=== PATIENT | female | born 1945 | race Caucasian/White ===

== ENCOUNTER → 2019-11-10 13:30 | Outpatient (REF) | payer MEDICARE, SELFPAY | LOC: ANHLAB 13:30 | PROVIDERS: PCP Emergency Medicine; Visit Provider Nurse Practitioner | DX: C44.722 Squamous cell carcinoma of skin of right lower limb, including hip (principal) | CPT/HCPCS: 88305 ==

== ENCOUNTER 2020-08-20 07:04 | Outpatient (CLI) | payer MEDICARE, SELFPAY ==
[2020-08-20 07:48] LABS: Alanine Aminotransferase 18 U/L (4-35); Albumin Level 3.9 g/dL (3.5-5.1); Alkaline Phosphatase 35 U/L (38-126); Anion Gap 2 mmol/L (8-16); Aspartate Amino Transferase 35 U/L (14-36); Bilirubin,Total 0.2 mg/dL (0.2-1.3); Blood Urea Nitrogen 7 mg/dL (7-17); Calcium 8.7 mg/dL (8.4-10.2); Carbon Dioxide 27 mmol/L (22-30); Chloride 114 mmol/L (98-107); Estimated Glomerular Filt Rate > 60; Glucose 91 mg/dL (65-105); Phosphorus 3.3 mg/dL (2.5-4.5); Potassium 4.2 mmol/L (3.4-5.0); Sodium 143 mmol/L (137-145)
[2020-08-20 07:58] LABS: Parathyroid Intact 141.6 pg/mL (7.5-53.5)
[2020-08-20 09:00] LABS: Vitamin D 25 Hydroxy 91.2 ng/mL
== END 2020-08-20 07:05 | disposition home or self-care (01) ==
PROVIDERS: Visit Provider Internal Medicine Endocrinology, Diabetes & Metabolism
DX: E55.9 Vitamin D deficiency, unspecified (principal); M81.0 Age-related osteoporosis without current pathological fracture
CPT/HCPCS: 36415; 80053; 82306; 83970; 84100

== ENCOUNTER 2020-10-22 12:49 | Outpatient (CLI) | payer MEDICARE, SELFPAY ==
--- NOTE | ~2020-10-22 | DEXA_ITS ---
Bone Density Report Name: Alina Ferro Age: 74 Sex: Female Ethnicity: White Date of : 1945 Indication: postmenopausal osteoporosis; monitoring treatment; height loss; prior fracture; cancer; hysterectomy; Referring Provider: Link, Tena Suggs Study: Bone densitometry was performed. Exam Date: October 22, 2020 Accession number: [id number] Bone Density: Region BMD T-score Z-score Classification AP Spine (L1-L4) 0.799 -2.3 0.1 Osteopenia Femoral Neck (Left) 0.625 -2.0 0.0 Osteopenia Total Hip (Left) 0.692 -2.0 -0.3 Osteopenia Total Hip Bilateral Avg 0.662 -2.3 -0.6 Osteopenia Femoral Neck (Right) 0.591 -2.3 -0.3 Osteopenia Total Hip (Right) 0.631 -2.5 -0.8 Osteoporosis World Health Organization criteria for BMD impression classify patients as: Normal (T-score at or above -1.0), Osteopenia (T-score between -1.0 and -2.5), or Osteoporosis (T-score at or below -2.5). 10-year Fracture Risk: FRAX not reported because: Some T-score for Spine Total or Hip Total or Femoral Neck at or below -2.5 Treated for osteoporosis Previous Exams: Region Exam Age BMD T-score BMD Change BMD Change Date g/cm2 vs Baseline vs Previous AP Spine(L1-L4) 10/22/2020 74 0.799 -2.3 0.098(14.0%)* 0.098(14.0%)* 02/04/2018 72 0.701 -3.1 Total Hip(Left) 10/22/2020 74 0.692 -2.0 0.018(2.7%) 0.018(2.7%) 02/04/2018 72 0.674 -2.2 Total Hip(Right) 10/22/2020 74 0.631 -2.5 0.045(7.6%)* 0.045(7.6%)* 02/04/2018 72 0.587 -2.9 *Denotes significance at 95% confidence level, LSC for AP Spine = 0.022 g/cm2, LSC for Total Hip = 0.027 g/cm2 Clinical Information Provided by Patient: Has had a low trauma fracture Is being treated for osteoporosis Has used the following medications: Fosamax (i.e. alendronate), Vitamin D, Calcium Has the following medical conditions: Cancer, Hysterectomy Patient maximum height was 67 Menopause Age: 51 Drinks caffeinated beverages Onset of menses at age 14 Number of children 1 Impression: The patient has established osteoporosis, based on the Right Total Hip T-score and the existence of a prior fracture. The patient has risk factors, including: previous fracture. No significant bone loss was observed. Discussion: PATIENT UNDER TREATMENT WITH NO SIGNIFICANT BMD LOSS SINCE LAST EXAM. In an untreated patient, BMD typically declines with age. A lack of decline or gain is usually a sign that treatment is efficacious and fracture risk is reduc
== END 2020-10-22 12:50 | disposition home or self-care (01) ==
LOC: ANHIMG 12:52
PROVIDERS: PCP Internal Medicine; Visit Provider Internal Medicine Endocrinology, Diabetes & Metabolism
DX: M81.0 Age-related osteoporosis without current pathological fracture (principal); M85.88 Other specified disorders of bone density and structure, other site; M85.852 Other specified disorders of bone density and structure, left thigh; M85.851 Other specified disorders of bone density and structure, right thigh
CPT/HCPCS: 77080

== ENCOUNTER 2021-04-25 15:52 | Emergency (ER) | payer MEDICARE, SELFPAY ==
[2021-04-25 15:54] VITALS: BP 126/63; PULSE 67; RESP 17; TEMP 36.2; O2SAT 97
[2021-04-25 16:34] LABS: Add Urine Microscopic? YES; Appearance Urine Cloudy (Clear); Bacteria Urine Trace /hpf; Bilirubin Urine Negative (Negative); Blood Urine Negative (Negative); Color Urine Yellow (Yellow); Glucose Urine UA Negative (Negative); Ketones Urine Negative (Negative); Leukocyte Esterase Ur 2+ LEU/UL (Negative); Nitrate Urine Negative (Negative); Protein Urine Negative (Negative); Squamous Epithelial Cell Urine Many /hpf (Few); Urobilinogen Urine Negative mg/dL (<2.0)
[2021-04-25 16:37] LABS: Specific Grav Ur 1.003 (1.001-1.035)
--- NOTE | 2021-04-25 16:44 | ED.GENADULT ---
HPI - General Adult General Chief complaint: Urogenital-Female Stated complaint: dysuria and urgency Time Seen by Provider: 04/25/21 16:12 History of Present Illness HPI narrative: Patient is a 75-year-old female who presents to the ER with dysuria. Ongoing for 3 days. Associate with some bloating and pressure in her lower abdomen. No vaginal discharge. No fevers or chills or sweats. No flank pain. No alleviating factors. Related Data Home Medications Medication Instructions Recorded Confirmed acetaminophen [Tylenol] PO 11/10/19 alprazolam [Xanax] PO 11/10/19 aspirin 81 mg tablet,delayed 81 mg PO DAILY 11/10/19 release calcium-multivitamin w-iron PO 11/10/19 denosumab 60 mg/mL subcutaneous 60 mg SUB-Q [id number] 11/10/19 syringe estradiol 0.5 mg tablet 0.5 mg PO DAILY 11/10/19 mecobalamin (vitamin B12) 5,000 mcg PO 11/10/19 mcg disintegrating tablet Allergies Allergy/AdvReac Type Severity Reaction Status Date / Time codeine Allergy Unknown VOMITING Verified 04/25/21 16:13 Penicillins Allergy Unknown Unknown Verified 04/25/21 16:13 Review of Systems Constitutional: Constitutional: Denies chills and Denies fever(s) Gastrointestinal: Gastrointestinal: Denies abdominal pain, Reports bloating, Reports constipation (Has been on oxycodone for dental work.), Denies nausea and Denies vomiting Genitourinary: Genitourinary: Denies hematuria, Reports nocturia, Reports dysuria and Denies flank pain PMFSH Past Medical History Medical History (Updated 04/25/21 @ 16:46 by Nimesh Abad MD) Osteoporosis Surgical History Surgical History (Updated 11/10/19 @ 13:19 by Leslie Antony CMA) History of oral surgery History of submandibular gland removal History of surgical removal of ganglion cyst Family History Family History (Updated 11/10/19 @ 13:19 by Leslie Antony CMA) Mother Family history of osteoporosis Family history of Alzheimer's disease Father Heart disease Grandparent Heart disease Social History Social History Smoking status: Never smoker Alcohol intake: never Exam Narrative: GENERAL: Well-appearing, well-nourished, and in no acute distress. HEAD: Normocephalic, atraumatic. CHEST: Clear to auscultation. No respiratory distress. HEART: Regular rate and rhythm. Normal peripheral pulses. ABDOMEN: Soft, nontender, nondistended, no CVA tenderness. EXTREMITIES: Normal range of motion. No edema. NEURO: Alert and oriented x3. PSYCH: Normal mood and affect. Course Course Emergency Course: Informed results. Discharge home. Vital Signs Vital signs: Vital Signs Temperature 97.2 F L 04/25/21 15:54 Pulse Rate 67 04/25/21 15:54 Respiratory Rate 17 04/25/21 15:54 Blood Pressure 126/63 04/25/21 15:54 Pulse Oximetry 97 04/25/21 15:54 Temperature 97.2 F L 04/25/21 15:54 Pulse Rate 67 04/25/21 15:54 Respiratory Rate 17 04/25/21 15:54 Blood Pressure 126/63 04/25/21 15:54 Pulse Oximetry 97 04/25/21 15:54 Medical Decision Making Vital Signs Vital Signs: Vital Signs Temperature 97.2 F L 04/25/21 15:54 Pulse Rate 67 04/25/21 15:54 Respiratory Rate 17 04/25/21 15:54 Blood Pressure 126/63 04/25/21 15:54 Pulse Oximetry 97 04/25/21 15:54 Temperature 97.2 F L 04/25/21 15:54 Pulse Rate 67 04/25/21 15:54 Respiratory Rate 17 04/25/21 15:54 Blood Pressure 126/63 04/25/21 15:54 Pulse Oximetry 97 04/25/21 15:54 Lab Data Labs: Lab Results 04/25/21 Range/Units 16:08 Urine Color Yellow (Yellow) Urine Appearance Cloudy H (Clear) Urine pH 7.0 (5.0-9.0) Ur Specific [place] 1.003 (1.001-1.035) Urine Protein Negative (Negative) mg/dL Urine Glucose (UA) Negative (Negative) mg/dL Urine Ketones Negative (Negative) mg/dL Ur Blood (Man) Negative (Negative) Urine Nitrate Negative (Negative) Urine Bilirubin Negative (Negative) Urine Urobilinogen Negative
[2021-04-25 17:07] VITALS: PULSE 60; RESP 18; O2SAT 99
== END 2021-04-25 17:10 | disposition home or self-care (01) ==
LOC: ANHED 17:01
PROVIDERS: Emergency Medicine; Emergency Provider Emergency Medicine; PCP Internal Medicine
DX: N39.0 Urinary tract infection, site not specified (principal); M81.0 Age-related osteoporosis without current pathological fracture; Z79.82 Long term (current) use of aspirin
CPT/HCPCS: 81001; 87086; 87147; 87181; 87186; 99283

== ENCOUNTER 2021-12-02 10:19 | Outpatient (CLI) | payer MEDICARE, SELFPAY ==
[2021-12-02 13:14] LABS: Cortisol Random 8.35 ug/dL
[2021-12-06 22:11] LABS: Adrenocorticotropic Hormone 16 pg/mL (6-50)
[2021-12-09 14:41] LABS: PRA 3.66 ng/mL/h (0.25-5.82)
== END 2021-12-02 10:20 | disposition home or self-care (01) ==
PROVIDERS: PCP Internal Medicine; Visit Provider Internal Medicine Endocrinology, Diabetes & Metabolism
DX: I95.9 Hypotension, unspecified (principal)
CPT/HCPCS: 36415; 82024; 82088; 82533; 84244

== ENCOUNTER 2021-12-27 09:33 | Outpatient (CLI) | payer MEDICARE, SELFPAY ==
[2021-12-27 10:08] LABS: Alanine Aminotransferase 19 U/L (6-35); Albumin Level 4.2 g/dL (3.5-5.1); Alkaline Phosphatase 42 U/L (38-126); Anion Gap 8 mmol/L (8-16); Aspartate Amino Transferase 31 U/L (14-36); Bilirubin,Total 0.3 mg/dL (0.2-1.3); Blood Urea Nitrogen 11 mg/dL (7-17); Calcium 8.5 mg/dL (8.4-10.2); Carbon Dioxide 25 mmol/L (22-30); Chloride 104 mmol/L (98-107); Estimated Glomerular Filt Rate > 60; Glucose 107 mg/dL (65-110); Phosphorus 3.9 mg/dL (2.5-4.5); Potassium 3.6 mmol/L (3.4-5.0); Sodium 137 mmol/L (137-145)
[2021-12-27 10:19] LABS: Parathyroid Intact 138.3 pg/mL (7.5-53.5)
[2021-12-27 10:33] LABS: Vitamin D 25 Hydroxy 49.6 ng/mL
[2021-12-27 10:38] LABS: Thyroid Stimulating Hormone 0.635 uIU/mL (0.465-4.680)
[2021-12-30 20:26] LABS: Triiodothyronine T3 Free 2.5 pg/mL (2.3-4.2)
== END 2021-12-27 09:34 | disposition home or self-care (01) ==
PROVIDERS: PCP Internal Medicine; Visit Provider Internal Medicine Endocrinology, Diabetes & Metabolism
DX: E06.3 Autoimmune thyroiditis (principal); M81.0 Age-related osteoporosis without current pathological fracture
CPT/HCPCS: 36415; 80053; 82306; 83970; 84100; 84439; 84443; 84481

== ENCOUNTER 2022-04-03 18:45 | Emergency (ER) | payer MEDICARE, SELFPAY ==
--- NOTE | 2022-04-03 19:39 | PC.NURSE ---
ALEJANDRO Kuo called x2 for triage and no answer from lobby at this time.
== END 2022-04-03 19:39 | disposition left against medical advice (07) ==
LOC: ANHED 20:20
PROVIDERS: PCP Internal Medicine
DX: Z53.21 Procedure and treatment not carried out due to patient leaving prior to being seen by health care provider (principal)
CPT/HCPCS: 99199

== ENCOUNTER 2022-04-04 08:55 | Emergency (ER) | payer MEDICARE, SELFPAY ==
--- NOTE | ~2022-04-04 | XR_ITS ---
EXAMINATION: XR chest 2V DATE: 04/04/2022 09:53 INDICATION: Cough. Weakness. TECHNIQUE: Frontal and lateral views of the chest were obtained. COMPARISON: Chest 2 views 02/17/2018 FINDINGS: There are airspace opacities at left lung base. No pleural effusion or pneumothorax. The he art size is normal. There is a chronic compression fracture of T12. IMPRESSION: 1. Airspace opacities at left lung base, consistent with atelectasis versus pneumonia. Reviewed, dictated and finalized at location A. [facility] IMPRESSION: 1. Airspace opacities at left lung base, consistent with atelectasis versus pne umonia.
[2022-04-04 09:04] VITALS: BP 94/65; PULSE 90; RESP 18; TEMP 36.7; O2SAT 100
[2022-04-04 09:07] VITALS: PULSE 98; RESP 16; TEMP 36.6; O2SAT 97
--- NOTE | 2022-04-04 09:13 | ED.GENADULT ---
HPI - General Adult General Chief complaint: Unspecified Stated complaint: weak, cold, nausea, Time Seen by Provider: 04/04/22 09:00 History of Present Illness HPI narrative: 76-year-old female here for evaluation of generalized weakness, chills, cough, congestion and sore throat over the past 3 days. Patient states that she actually feels better today but decided to come in because she finally gained the strength to leave the house. Reports positive sick contacts, patient's is sick with similar symptoms. Denies chest pain but states that the cough is making her feel short of breath. No leg swelling, vomiting, diarrhea, abdominal pain or fevers. No history of lung disease. Related Data Home Medications Medication Instructions Recorded Confirmed acetaminophen [Tylenol] PO 11/10/19 alprazolam [Xanax] PO 11/10/19 aspirin 81 mg tablet,delayed 81 mg PO DAILY 11/10/19 release (Adult Aspirin Regimen) calcium-multivitamin w-iron PO 11/10/19 denosumab 60 mg/mL subcutaneous 60 mg subcut [id number] 11/10/19 syringe (Prolia) estradiol 0.5 mg tablet 0.5 mg PO DAILY 11/10/19 mecobalamin (vitamin B12) 5,000 mcg PO 11/10/19 mcg disintegrating tablet Allergies Allergy/AdvReac Type Severity Reaction Status Date / Time codeine Allergy Unknown VOMITING Verified 04/04/22 08:56 Penicillins Allergy Unknown Unknown Verified 04/04/22 08:56 Review of Systems Review of Systems: Gen.: Denies fevers or chills Eyes: Denies eye pain or visual change ENT: Reports congestion and sore throat Respiratory: Reports cough CV: Denies chest pain or palpitations GI: Denies abdominal pain nausea, emesis or diarrhea denies burning, urgency, frequency or hematuria Musculoskeletal: Denies back pain or muscle pain Neuro: Denies numbness, tingling, weakness or focal weakness Skin: Denies rash Except as documented, all other systems reviewed and negative [facility] Past Medical History Medical History (Updated 04/04/22 @ 10:22 by Piedad Atkinson PA-C) Osteoporosis Surgical History Surgical History (Updated 11/10/19 @ 13:19 by Leslie Antony CMA) History of oral surgery History of submandibular gland removal History of surgical removal of ganglion cyst Family History Family History (Updated 11/10/19 @ 13:19 by Leslie Antony [facility]) Mother Family history of osteoporosis Family history of Alzheimer's disease Father Heart disease Grandparent Heart disease Social History Social History Smoking status: Never smoker Alcohol intake: never Exam Narrative: APPEARANCE: Appears younger than stated age. Well appearing, no pain in distress, well-nourished. Head: Normocephalic and atraumatic. EYES: PERRLA/EOMI, conjunctivae clear NOSE: No nasal drainage EARS: External ear normal in appearance THROAT: Oropharynx is clear. Mucous membranes are moist. NECK: Supple. No adenopathy, no masses. RESPIRATORY: Airway patent, respirations nonlabored. Clear to auscultation bilaterally, no rales, rhonchi, wheezing. CARDIOVASCULAR: Regular rate and rhythm without murmurs, rubs, or gallops. ABDOMINAL: Normoactive bowel sounds. Soft, nontender, nondistended. No rebound tenderness or guarding. MUSCULOSKELETAL: Extremities are warm and well-perfused. Moves all extremities well. No edema. NEURO: Normal speech. No focal neurologic deficits. SKIN: Skin is warm and dry. No rashes. PSYCHIATRIC: Normal affect/mood. Course Vital Signs Vital signs: Vital Signs Temperature 98.0 F 04/04/22 09:04 Pulse Rate 90 04/04/22 09:04 Respiratory Rate 18 04/04/22 09:04 Blood Pressure 94/65 L 04/04/22 09:04 Pulse Oximetry 100 04/04/22 09:04 Oxygen Delivery Room Air 04/04/22 09:04 Temperature 97.8 F 04/04/22 09:07 Pulse Rate 72 04/04/22 11:37 Respiratory Rate 18 04/04/22 11:37 Blood Pressure 95/48 L 04/04/22 11:37 Pulse Oximetry 100 04/04/22 11:37 Oxygen Delivery Room Air 04/04/22 10:38
[2022-04-04 09:45] LABS: Basophils Percent Auto 0.2 % (0.2-1.2); Hematocrit 39.8 % (37.0-47.0); Hemoglobin 13.3 g/dL (12.0-15.0); Immature Granulocyte Absolute 0.05 K/mm3 (0.00-0.031); Immature Granulocyte Percent A 0.4 % (0-0.5); Lymphocytes Absolute Auto 1.18 K/mm3 (0.9-3.2); Lymphocytes Percent Auto 9.2 % (18.3-44.2); Mean Corpuscular HGB Conc 33.4 g/dl (32-36); Mean Corpuscular Hemoglobin 32.3 pg (26-34); Mean Corpuscular Volume 96.6 fl (80-100); Mean Platelet Volume 10.2 fl (7.4-10.4); Monocytes Absolute Auto 1.1 K/mm3 (0.1-0.6); Monocytes Percent Auto 8.5 % (2.6-8.5); Neutrophils Absolute Auto 10.5 K/mm3 (1.3-6.7); Neutrophils Percent Auto 81.7 % (45.5-73.1); Platelet Count Result 191 k/mm3 (150-375); Red Blood Count 4.12 M/mm3 (4.2-5.4); Red Cell Distribution Width 13.2 % (11.5-14.5); White Blood Count 12.9 K/mm3 (4.5-10.0)
[2022-04-04 09:57] LABS: Alanine Aminotransferase 20 U/L (6-35); Alkaline Phosphatase 45 U/L (38-126); Anion Gap 7 mmol/L (8-16); Aspartate Amino Transferase 36 U/L (14-36); Bilirubin,Total 0.5 mg/dL (0.2-1.3); Blood Urea Nitrogen 7 mg/dL (7-17); Calcium 8.3 mg/dL (8.4-10.2); Carbon Dioxide 24 mmol/L (22-30); Chloride 102 mmol/L (98-107); Estimated CRCL calculation 42 ml/min; Estimated Glomerular Filt Rate > 60; Glucose 108 mg/dL (65-110); Potassium 3.3 mmol/L (3.4-5.0); Sodium 133 mmol/L (137-145)
[2022-04-04 10:09] LABS: Influenza A QL RT-PCR Positive (Negative); Influenza B QL RT-PCR Negative (Negative); SARS-CoV-2 RNA PCR Negative
[2022-04-04] MEDS: SODIUM CHLORIDE 0.9% IV 1,000 ML 999 ML IV CONT (10:36)
[2022-04-04 11:37] VITALS: BP 95/48; PULSE 72; RESP 18; O2SAT 100
== END 2022-04-04 11:43 | disposition home or self-care (01) ==
PROVIDERS: Emergency Provider Physician Assistant; PCP Internal Medicine
DX: J10.1 Influenza due to other identified influenza virus with other respiratory manifestations (principal); Z20.822 Contact with and (suspected) exposure to COVID-19; M81.0 Age-related osteoporosis without current pathological fracture; Z79.82 Long term (current) use of aspirin
CPT/HCPCS: 36415; 71046; 80053; 85025; 87636; 96360; 99283; J7030

== ENCOUNTER 2022-05-27 11:40 | Outpatient (CLI) | payer MEDICARE, SELFPAY ==
[2022-05-27 12:43] LABS: Alanine Aminotransferase 21 U/L (6-35); Albumin Level 3.9 g/dL (3.5-5.1); Alkaline Phosphatase 44 U/L (38-126); Anion Gap 4 mmol/L (8-16); Aspartate Amino Transferase 35 U/L (14-36); Bilirubin,Total 0.4 mg/dL (0.2-1.3); Blood Urea Nitrogen 9 mg/dL (7-17); Calcium 8.7 mg/dL (8.4-10.2); Carbon Dioxide 25 mmol/L (22-30); Chloride 108 mmol/L (98-107); Estimated Glomerular Filt Rate > 60; Glucose 97 mg/dL (65-110); Phosphorus 3.6 mg/dL (2.5-4.5); Potassium 3.6 mmol/L (3.4-5.0); Sodium 137 mmol/L (137-145)
[2022-05-27 13:13] LABS: Thyroid Stimulating Hormone 0.441 uIU/mL (0.465-4.680)
[2022-05-27 14:19] LABS: Free T4 Free Thyroxine 0.73 ng/mL (0.78-2.19); Vitamin D 25 Hydroxy 49.7 ng/mL
[2022-06-01 06:16] LABS: Triiodothyronine T3 Free 2.3 pg/mL (2.3-4.2)
== END 2022-05-27 11:41 | disposition home or self-care (01) ==
PROVIDERS: PCP Internal Medicine; Visit Provider Internal Medicine Endocrinology, Diabetes & Metabolism
DX: M81.0 Age-related osteoporosis without current pathological fracture (principal); E06.3 Autoimmune thyroiditis
CPT/HCPCS: 36415; 80053; 82306; 83970; 84100; 84439; 84443; 84481

== ENCOUNTER 2022-06-10 10:57 | Emergency (ER) | payer MEDICARE, SELFPAY ==
[2022-06-10 11:03] VITALS: BP 117/45; PULSE 71; RESP 16; O2SAT 99
--- NOTE | 2022-06-10 11:56 | ED.SKABFB ---
HPI - Skin/Abscess/Foreign Bdy General Chief complaint: Skin/Abscess/Foreign Body Stated complaint: piece of hearing aid caught in ear Time Seen by Provider: 06/10/22 11:07 Source: patient Mode of arrival: ambulatory Limitations: no limitations History of Present Illness HPI narrative: This is a 76-year-old female that presents to the emergency department for a foreign body in her right ear. Reports part of her hearing aid is stuck in her ear. She was unable to remove this herself which prompted her to be seen. Denies fevers or otalgia. Related Data Home Medications Medication Instructions Recorded Confirmed acetaminophen [Tylenol] PO 11/10/19 alprazolam [Xanax] PO 11/10/19 aspirin 81 mg tablet,delayed 81 mg PO DAILY 11/10/19 release (Adult Aspirin Regimen) calcium-multivitamin w-iron PO 11/10/19 denosumab 60 mg/mL subcutaneous 60 mg subcut [id number] 11/10/19 syringe (Prolia) estradiol 0.5 mg tablet 0.5 mg PO DAILY 11/10/19 mecobalamin (vitamin B12) 5,000 mcg PO 11/10/19 mcg disintegrating tablet Allergies Allergy/AdvReac Type Severity Reaction Status Date / Time codeine Allergy Unknown VOMITING Verified 04/04/22 08:56 Penicillins Allergy Unknown Unknown Verified 04/04/22 08:56 Review of Systems Review of Systems: CONSTITUTIONAL: Denies fever ENT: Denies otalgia. All systems reviewed & are unremarkable except as noted in HPI and below PMFSH Past Medical History Medical History (Updated 06/10/22 @ 11:57 by Piedad Reynaga PA-C) Osteoporosis Surgical History Surgical History (Updated 11/10/19 @ 13:19 by Leslie Antony CMA) History of oral surgery History of submandibular gland removal History of surgical removal of ganglion cyst Family History Family History (Updated 11/10/19 @ 13:19 by Leslie Antony CMA) Mother Family history of osteoporosis Family history of Alzheimer's disease Father Heart disease Grandparent Heart disease Social History Social History Smoking status: Never smoker Alcohol intake: never Exam Narrative: GENERAL: Well-appearing, well-nourished, and in no acute distress. HEAD: Normocephalic, atraumatic. EYES: EOMI. ENT: Right external auditory canal with part of hearing aid visualized EXTREMITIES: Normal range of motion. No edema. SKIN: Warm, dry, no rash. NEURO: No focal deficits. Alert and oriented x3. PSYCH: Normal mood and affect Course Vital Signs Vital signs: Vital Signs Pulse Rate 71 06/10/22 11:03 Respiratory Rate 16 06/10/22 11:03 Blood Pressure 117/45 L 06/10/22 11:03 Pulse Oximetry 99 06/10/22 11:03 Oxygen Delivery Room Air 06/10/22 11:03 Pulse Rate 71 06/10/22 11:03 Respiratory Rate 16 06/10/22 11:03 Blood Pressure 117/45 L 06/10/22 11:03 Pulse Oximetry 99 06/10/22 11:03 Oxygen Delivery Room Air 06/10/22 11:03 Procedures FB Removal Ear Foreign Body #1: Foreign Body Removal Date: 06/10/22 Foreign Body Removal Time: 12:01 Location: ear canal (R) Foreign Body Suspected: other (Hearing aids) TM intact pre-procedure: unable to visualize Foreign Body Removed: yes Foreign Body Removal Technique: forceps Tympanic Membrane Intact Post Procedure: Yes Patient Tolerated Procedure: well and no complications Complications: none MDM - Skin/Abscess/Foreign Bdy MDM Narrative Medical decision making narrative: Patient presents to the emergency department for part of her hearing aid being stuck in her right external auditory canal. This was easily removed. TM and external auditory canal are normal post removal. Was instructed to follow-up with her primary provider as needed Differential Diagnosis Differential diagnosis: Likely other (ear foreign body, otitis externa) Critical Care Time Critical Care Time Critical Care Time: No Discharge Plan Discharge Clinical Impression: Foreign body in right ear Qualifiers:
[2022-06-10 12:06] VITALS: TEMP 36.6
== END 2022-06-10 12:06 | disposition home or self-care (01) ==
PROVIDERS: Emergency Provider Physician Assistant; PCP Internal Medicine
DX: T16.1XXA Foreign body in right ear, initial encounter (principal); M81.0 Age-related osteoporosis without current pathological fracture; Z79.82 Long term (current) use of aspirin
CPT/HCPCS: 69200; 99282

== ENCOUNTER 2022-07-07 10:34 | Emergency (ER) | payer MEDICARE, SELFPAY ==
--- NOTE | 2022-07-07 11:02 | PC.NURSE ---
Patient informed this RN that she was able to get into her PCP office this afternoon to have piece of hearing aid removed, so she is leaving the emergency department and going home.
--- NOTE | 2022-07-07 11:50 | PC.NURSE ---
Patient did not answer when called for triage a second time at 1150
--- NOTE | 2022-07-07 12:15 | PC.NURSE ---
Patient did not answer for triage a third time
== END 2022-07-07 14:57 | disposition left against medical advice (07) ==
PROVIDERS: PCP Internal Medicine
DX: Z53.21 Procedure and treatment not carried out due to patient leaving prior to being seen by health care provider (principal)
CPT/HCPCS: 99199

== ENCOUNTER 2022-07-21 11:22 | Outpatient (CLI) | payer MEDICARE, SELFPAY ==
[2022-07-21 12:47] LABS: Alanine Aminotransferase 18 U/L (6-35); Albumin Level 4.3 g/dL (3.5-5.1); Alkaline Phosphatase 45 U/L (38-126); Anion Gap 4 mmol/L (8-16); Aspartate Amino Transferase 26 U/L (14-36); Bilirubin,Total 0.5 mg/dL (0.2-1.3); Blood Urea Nitrogen 12 mg/dL (7-17); Calcium 9.2 mg/dL (8.4-10.2); Carbon Dioxide 26 mmol/L (22-30); Chloride 110 mmol/L (98-107); Estimated Glomerular Filt Rate > 60; Glucose 97 mg/dL (65-110); Phosphorus 3.7 mg/dL (2.5-4.5); Potassium 3.8 mmol/L (3.4-5.0); Sodium 140 mmol/L (137-145)
[2022-07-21 13:03] LABS: Free T4 Free Thyroxine 0.83 ng/mL (0.78-2.19)
[2022-07-21 13:15] LABS: Thyroid Stimulating Hormone 0.191 uIU/mL (0.465-4.680)
[2022-07-21 13:51] LABS: Folic Acid 15.3 ng/mL (2.76->20)
[2022-07-24 05:25] LABS: Triiodothyronine T3 Free 1.9 pg/mL (2.3-4.2)
== END 2022-07-21 11:23 | disposition home or self-care (01) ==
PROVIDERS: PCP Internal Medicine; Visit Provider Internal Medicine Endocrinology, Diabetes & Metabolism
DX: E06.3 Autoimmune thyroiditis (principal); M81.0 Age-related osteoporosis without current pathological fracture
CPT/HCPCS: 36415; 80053; 82306; 82607; 82746; 83970; 84100; 84439; 84443; 84481

== ENCOUNTER 2022-09-08 09:00 | Outpatient (NON) | payer MEDICARE, SELFPAY | END 2022-09-08 09:01 | disposition home or self-care (01) | LOC: ANHLAB 09-09 12:54 | PROVIDERS: PCP Internal Medicine; Visit Provider Internal Medicine Gastroenterology | DX: D12.6 Benign neoplasm of colon, unspecified (principal) | CPT/HCPCS: 88305 ==

== ENCOUNTER 2022-09-08 10:05 | Day surgery (SDC) | payer MEDICARE, SELFPAY ==
[2022-08-18 11:46] VITALS: BMI 17.8
[2022-08-21 11:54] VITALS: BMI 18.1
--- NOTE | 2022-09-05 15:28 | P.PNAN_ITS ---
Anes - Initial Pre Proc Eval Procedure: Operation Date: 09/08/22 12:30 Proposed Procedures p Screening Colonoscopy - Raúl Yepez MD Date/Time: 09/05/22 15:28 Surgeon: Raúl Yepez MD Pre Op Diagnosis: Noeplasm Screening Patient Data Age: 76 Gender: F Height: 1.68 m Weight: 50.8 kg Allergies Allergy/AdvReac Type Severity Reaction Status Date / Time codeine Allergy Unknown VOMITING Verified 04/04/22 08:56 Penicillins Allergy Unknown Rash Verified 08/21/22 11:53 Home Medications Medication Instructions Recorded Confirmed Type aspirin 81 mg tablet,delayed 81 mg PO DAILY 11/10/19 08/21/22 History release (Adult Aspirin Regimen) calcium-multivitamin w-iron 1,200 mg PO DAILY 11/10/19 08/21/22 History estradiol 0.5 mg tablet 0.5 mg PO DAILY 11/10/19 08/21/22 History mecobalamin (vitamin B12) 5,000 5,000 mcg PO DAILY 11/10/19 08/21/22 History mcg disintegrating tablet albuterol sulfate 90 mcg/actuation 08/21/22 08/21/22 History aerosol inhaler alendronate 70 mg tablet 70 mg PO WEEKLY 08/21/22 08/21/22 History levothyroxine 75 mcg tablet 75 mcg PO DAILY 08/21/22 08/21/22 History (Unithroid) liothyronine 5 mcg tablet 5 mcg PO DAILY 08/21/22 08/21/22 History rosuvastatin 10 mg tablet 10 mg PO DAILY 08/21/22 08/21/22 History Patient hx anesthesia problems: none Family hx anesthesia problems: none Results Review: All pre-operative results and documents have been reviewed as part of the pre- operative evaluation. FORMERLY [facility], [facility] Past Medical History Medical History (Updated 09/05/22 @ 15:29 by Gilmer Chavez MD) Hyperlipidemia Hypothyroidism Osteoporosis Surgical History Surgical History (Updated 11/10/19 @ 13:19 by Leslie Antony CMA) History of oral surgery History of submandibular gland removal History of surgical removal of ganglion cyst Family History Family History (Updated 11/10/19 @ 13:19 by Leslie Antony CMA) Mother Family history of osteoporosis Family history of Alzheimer's disease Father Heart disease Grandparent Heart disease Social History Social History Smoking status: Never smoker Alcohol intake: current Substance use: never Substance use type: does not use Living arrangements: with family Spiritual care concerns: No Anes - Eval Final PreProcedure Day of Procedure 09/05/22 15:28 Patient weight: normal Heart: regular rate and rhythm Lungs: clear to auscultation and normal air movement Airway: Mallampati scale class II Neurological: alert and oriented Last oral intake: >/= 8 hours ASA classification: II Emergent: no Anesthetic plan: proceed Anesthesia type and monitoring: general GIVS Results Review: All pre-operative results and documents have been reviewed as part of the pre- operative evaluation. Informed Consent: The patient's anesthetic plan and its attendant risks and benefits were discussed with the patient/family/POA. Questions were solicited and answers provided to the satisfaction of the patient/family/POA.
[2022-09-08 11:15] VITALS: BP 101/53; PULSE 79; RESP 20; TEMP 36.7; O2SAT 99
[2022-09-08] MEDS: LACTATED RINGERS 1,000 ML 150 ML IV CONT (11:55)
--- NOTE | 2022-09-08 12:02 | PM.HPGS ---
History of Present Illness History of Present Illness Consent: Risks, benefits, and alternatives have been discussed and questions answered. Patient agrees to proceed with procedure. Chief complaint: Noeplasm Screening Narrative: Alina Ferro is a 76 year old female with last colonoscopy 4 years ago with polyp Review of Systems Constitutional: Constitutional: Denies headache(s) and Denies weakness Eyes: Eyes: Denies blurry vision ENT: Reports Normal hearing present, Denies headache(s) and Denies neck pain Cardiovascular: Cardiovascular: Denies chest pain and Denies dyspnea Respiratory: Respiratory: Denies dyspnea Gastrointestinal: Gastrointestinal: Reports no additional gastrointestinal complaints Genitourinary: Genitourinary: Denies dysuria Musculoskeletal: Musculoskeletal: Denies neck pain Integumentary/Breasts: Skin/Breast: Denies dry skin Neurologic: Reports Normal hearing present, Denies headache(s) and Denies weakness Psychiatric: Psychiatric: Denies anxiety Endocrine: Endocrine: Denies change in body appearance Hematologic/Lymphatic: Hematologic/Lymphatic: Denies easy bleeding Allergic/Immunologic: Allergic/Immunologic: Denies urticaria PMFSH Past Medical History Medical History (Updated 09/08/22 @ 12:32 by Raúl Yepez MD) Adenomatous colon polyp Hyperlipidemia Hypothyroidism Osteoporosis Surgical History Surgical History (Updated 11/10/19 @ 13:19 by Leslie Antony CMA) History of oral surgery History of submandibular gland removal History of surgical removal of ganglion cyst Family History Family History (Updated 11/10/19 @ 13:19 by Leslie Antony CMA) Mother Family history of osteoporosis Family history of Alzheimer's disease Father Heart disease Grandparent Heart disease Social History Social History Smoking status: Never smoker Alcohol intake: current Substance use: never Substance use type: does not use Living arrangements: with family Spiritual care concerns: No Meds Home Medications and Allergies Home Medications Medication Instructions Recorded Confirmed Type aspirin 81 mg tablet,delayed 81 mg PO DAILY 11/10/19 09/08/22 History release (Adult Aspirin Regimen) calcium-multivitamin w-iron 1,200 mg PO DAILY 11/10/19 09/08/22 History estradiol 0.5 mg tablet 0.5 mg PO DAILY 11/10/19 09/08/22 History mecobalamin (vitamin B12) 5,000 5,000 mcg PO DAILY 11/10/19 09/08/22 History mcg disintegrating tablet albuterol sulfate 90 mcg/actuation 08/21/22 09/08/22 History aerosol inhaler alendronate 70 mg tablet 70 mg PO WEEKLY 08/21/22 09/08/22 History levothyroxine 75 mcg tablet 75 mcg PO DAILY 08/21/22 09/08/22 History (Unithroid) liothyronine 5 mcg tablet 5 mcg PO DAILY 08/21/22 09/08/22 History rosuvastatin 10 mg tablet 10 mg PO DAILY 08/21/22 09/08/22 History Allergies Allergy/AdvReac Type Severity Reaction Status Date / Time codeine Allergy Unknown VOMITING Verified 09/08/22 11:50 Penicillins Allergy Unknown Rash Verified 09/08/22 11:50 Vital Signs Vital Signs - 24 hr 09/08/22 11:15 Temperature 98.1 F Pulse Rate 79 Respiratory Rate 20 Blood Pressure 101/53 L Pulse Oximetry 99 Oxygen Delivery Room Air Exam Const: General: comfortable and no acute distress HENMT: Face/Nose/Sinus: Normal nares present Eyes: General: appearance normal, both eyes and all related structures Neck: Neck: no JVD Resp: Auscultation: clear to auscultation bilaterally Cardio: Rate: regular rate Rhythm: regular rhythm GI: Inspection: non-distended GI Palp: Yes Soft to palpation Skin: General skin exam: normal color Neuro: General: gait normal Speech: normal speech Extrem: General: normal to inspection Psych: Mental Status: mental status grossly normal Assessment and Plan Assessment and plan (1) Adenomatous colon polyp: Code(s): D12.6 - Benign neoplasm of colon, unspecified
[2022-09-08 12:35] VITALS: BP 86/50; PULSE 77; RESP 16; O2SAT 100
[2022-09-08 12:45] VITALS: BP 92/59; PULSE 68; RESP 18; O2SAT 99
[2022-09-08 12:55] VITALS: BP 99/63; PULSE 62; RESP 18; O2SAT 98
--- NOTE | 2022-09-16 08:39 | WPDANESPN ---
Anes - Prog Note Post-Op Date/Time: 09/16/22 08:39 Cardiovascular status: normal Respiratory status: normal Airway patency: baseline Mental status: baseline Post-Op hydration status: normal Vital Signs: Last Vital Signs Temp 36.7 C 09/08/22 11:15 Pulse 62 09/08/22 12:55 Resp 18 09/08/22 12:55 BP 99/63 L 09/08/22 12:55 Pulse Ox 98 09/08/22 12:55 O2 Del Method Room Air 09/08/22 12:55 Pain Score (VAS): 0 Post-procedural complaints: none Patient Feedback: Patient satisfied with anesthetic care.
== END 2022-09-08 13:20 | disposition home or self-care (01) ==
PROVIDERS: PCP Internal Medicine; Visit Provider Internal Medicine Gastroenterology
PROC: 0DJD8ZZ Inspection of Lower Intestinal Tract, Via Natural or Artificial Opening Endoscopic (ICD-10-PCS; CPT 45378; principal; 2022-09-08 12:30)
DX: Z86.010 Personal history of colon polyps (principal)
CPT/HCPCS: 45380

== ENCOUNTER → 2022-09-23 15:01 | Outpatient (CLI) | payer MEDICARE, SELFPAY ==
--- NOTE | ~2022-09-23 | MR_ITS ---
EXAMINATION: MR ankle LT wo con DATE: 09/23/2022 15:59 INDICATION: Left ankle pain. TECHNIQUE: Magnetic resonance imaging (MRI) of the left ankle was performed without intravenous contr ast. Sequences included sagittal PD-weighted FS FSE, sagittal PD-weighted FSE, coronal PD-weighted FS FSE, coronal PD-weighted FSE, axial PD-weighted FS FSE, and axial PD-weighted FSE. COMPARISON: None. FINDINGS: Medial ankle ligaments: The deep and superficial components of the deltoid ligament are intact. Lateral ankle ligaments: There are changes of prior sprains of anterior talofibular ligament and anterior tibiofibular ligamen t characterized by increased signal intensity. Calcaneofibular ligament, posterior talofibular ligame nt, and posterior tibiofibular ligament are normal. Tendons: The medial and anterior ankle tendons are normal. The peroneal tendons are normal. There is noninsert ional Achilles tendinopathy and low-grade partial tear characterized by fusiform thickening and small area of intrasubstance fluid-like signal intensity centered 5 cm proximal to the distal attachment. Plantar fascia: Normal. Bones/other: Bone alignment is normal. No fracture. There is partial-thickness cartilage loss in the ankle joint a nd some of the midfoot joints. Fluid: There is a small subtalar joint effusion. IMPRESSION: 1. 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 Reviewed, dictated and finalized at location A.
== END ==
PROVIDERS: PCP Internal Medicine; Visit Provider Podiatrist Foot & Ankle Surgery
DX: M76.62 Achilles tendinitis, left leg (principal)
CPT/HCPCS: 73721

== ENCOUNTER 2023-11-11 15:29 | Outpatient (CLI) | payer MEDICARE, SELFPAY ==
--- NOTE | ~2023-11-11 | MM_ITS ---
EXAMINATION: MM screening adrian BI w amairani HISTORY: Screening TECHNIQUE: Craniocaudal and mediolateral oblique 3-D tomosynthesis images were obtained and synthetic 2-D images were generated. CAD analysis was submitted and interpreted. COMPARISON: No prior mammogram is available for comparison at this institution. BREAST PARENCHYMAL COMPOSITION: Not dense: There are scattered areas of fibroglandular density. FINDINGS: There are asymmetries in the upper outer quadrant and lower inner quadrant of the left [address]. There is no mammographic evidence for malignancy in the right breast. IMPRESSION: 1. Left breast asymmetries. 2. Additional spot compression and mediolateral views with possible follow-up breast ultrasound recom mended. BI-RADS CATEGORY 0 - INCOMPLETE STUDY, NEED ADDITIONAL IMAGING EVALUATION. Reviewed, dictated and finalized at location B. IMPRESSION: 1. Left breast asymmetries. 2. Additional spot compression and mediolateral views with possible follow-up b reast ultrasound recommended. BI-RADS CATEGORY 0 - INCOMPLETE STUDY, NEED ADDITIONAL IMAGING EVALUATION.
== END 2023-11-11 15:30 ==
LOC: MICIMG 15:30
PROVIDERS: PCP Internal Medicine; Visit Provider Internal Medicine
DX: Z12.31 Encounter for screening mammogram for malignant neoplasm of breast (principal)
CPT/HCPCS: 77063; 77067

== ENCOUNTER 2023-12-01 10:07 | Outpatient (CLI) | payer MEDICARE, SELFPAY ==
--- NOTE | ~2023-12-01 | DEXA_ITS ---
Bone Density Report Name: ROXANNE SUAREZ Age: 78 Sex: Female Ethnicity: White Date of : 1945 Indication: postmenopausal; screening for osteoporosis; height loss; history of glucocorticoids; cancer; hysterectomy; Referring Provider: PUNEET, NIKKY Study: Bone densitometry was performed. Exam Date: December 01, 2023 Accession number: [id number] Bone Density: Region BMD T-score Z-score Classification AP Spine(L1-L4) 0.765 -2.6 0.0 Osteoporosis Femoral Neck (Left) 0.681 -1.5 0.7 Osteopenia Total Hip (Left) 0.722 -1.8 0.1 Osteopenia Femoral Neck (Right) 0.632 -2.0 0.2 Osteopenia Total Hip (Right) 0.686 -2.1 -0.2 Osteopenia Total Hip Mean 0.704 -2.0 -0.1 Osteopenia World Health Organization criteria for BMD impression classify patients as: Normal (T-score at or above -1.0), Osteopenia (T-score between -1.0 and -2.5), or Osteoporosis (T-score at or below -2.5). 10-year Fracture Risk: FRAX not reported because: Some T-score for Spine Total or Hip Total or Femoral Neck at or below -2.5 Treated for osteoporosis Clinical Information Provided by Patient: Has taken Glucocorticoids Is being treated for osteoporosis Has used the following medications: Fosamax (i.e. alendronate), Vitamin D, Calcium Has the following medical conditions: Cancer, Hysterectomy Patient maximum height was 67 Menopause Age: 51 Does not regularly consume dairy products Drinks caffeinated beverages Onset of menses at age 14 Number of children 1 Impression: The patient has osteoporosis, based on the Total Spine T-score. The patient has risk factors, including: history of glucocorticoid therapy. Discussion: It is important to ask patients whether they are taking their medications and to encourage continued and appropriate compliance with their osteoporosis therapies to reduce fracture risk. It is also important to review their risk factors and encourage appropriate calcium and vitamin D intakes, exercise, fall prevention and other lifestyle measures. Follow-Up: Consider a repeat BMD and Vertebral Fracture Assessment (VFA) exam in 2 years or sooner if medically necessary, to reassess this patient's status. Reported by: FADIA on 12/01/2023 10:52:00 AM. Reviewed, dictated and finalized at location Shireen GARCIA
== END 2023-12-01 10:08 | disposition home or self-care (01) ==
PROVIDERS: PCP Internal Medicine; Visit Provider Internal Medicine
DX: M81.0 Age-related osteoporosis without current pathological fracture (principal); M85.852 Other specified disorders of bone density and structure, left thigh; M85.851 Other specified disorders of bone density and structure, right thigh
CPT/HCPCS: 77080

== ENCOUNTER 2024-12-16 15:01 | Outpatient (CLI) | payer MEDICARE, SELFPAY ==
--- NOTE | ~2024-12-16 | MM_ITS ---
EXAMINATION: MM screening adrian BI w amairani HISTORY: Screening TECHNIQUE: Craniocaudal and mediolateral oblique 3-D tomosynthesis images were obtained and synthetic 2-D images were generated. CAD analysis was submitted and interpreted. COMPARISON: Comparison to multiple prior studies sequentially, with oldest reviewed study dated 09/2019. BREAST PARENCHYMAL COMPOSITION: Not dense: There are scattered areas of fibroglandular density. FINDINGS: There is no evidence of suspicious mass, calcification, or architectural distortion to sugg est malignancy in either breast. There has been no suspicious interval change. IMPRESSION: 1. No mammographic evidence of malignancy. 2. Recommend routine screening mammography in one year. BI-RADS Category 1: Negative Reviewed, dictated and finalized at location A.
== END 2024-12-16 15:02 | disposition home or self-care (01) ==
LOC: MICIMG 15:02
PROVIDERS: PCP Internal Medicine; Visit Provider Internal Medicine
DX: Z12.31 Encounter for screening mammogram for malignant neoplasm of breast (principal)
CPT/HCPCS: 77063; 77067